=== PATIENT | female | born 1955 | race Caucasian/White ===

== ENCOUNTER → 2022-10-15 | Outpatient (CLI) | payer MEDICARE ==
--- NOTE | 2022-10-17 11:22 | MR ---
EXAMINATION TYPE: MR brain wo/w con DATE OF EXAM: 10/15/2022 COMPARISON: None HISTORY: Lung cancer. CONTRAST: Performed utilizing 6.5 mL intravenous Gadavist gadolinium contrast. TECHNIQUE: Multiplanar, multiecho imaging on a 3.0 Jelly magnet is performed through the brain. Stud y is performed within 24 hours of arrival to the hospital. The craniovertebral junction is normal. The pituitary is normal. Diffusion-weighted imaging is performed. No abnormal hyperintensity is present to suggest an acute i ntracranial infarct or acute ischemic change. Periventricular white matter changes are evident, likely on the basis of chronic white ischemic padgett e. Ventricles and sulci appear appropriate for the patient's age. Ventricles and sulci are appropriate for the patient age. Following contrast, no abnormal enhancement is evident. Postcontrast imaging is somewhat limited due to motion artifact. IMPRESSION: 1. No suspicious changes to suggest metastatic disease.
== END | disposition home or self-care (01) ==
LOC: RADMRIMAIN 09:57
PROVIDERS: ATTEND Internal Medicine
DX: C34.82 Malignant neoplasm of overlapping sites of left bronchus and lung (principal)
CPT/HCPCS: 70553; A9585

== ENCOUNTER → 2022-11-28 | Day surgery (SDC) | payer MEDICARE ==
[2022-11-23 14:45] VITALS: BMI 24.3
[~2022-11-28] MED LIST: ALBUTEROL NEBULIZED 2.5 MG/3 ML INHALATION ONE; DEXAMETHASONE SOD PHOSPHATE 4 MG/ML 1 ML VIAL IV ONE; GLYCOPYRROLATE 0.2 MG/ML 2 ML VIAL ONE; HYDROmorphone 0.5 MG/0.5 ML SYRINGE IVP PRN; LACTATED RINGERS 1,000 ML IV SCH; MIDAZOLAM 2 MG/2 ML VIAL IV PRN; NEOSTIGMINE 1 MG/ML 10 ML VIAL ONE; ONDANSETRON 4 MG/2 ML VIAL IVP ONE; PROPOFOL 10 MG/ML 20 ML VIAL IV ONE; ROCURONIUM 10 MG/ML (5 ML VIAL) IV ONE; SUCCINYLCHOLINE CHLORIDE 200 MG/10 ML VIAL IV ONE; fentaNYL (PF) 50 MCG/ML 2 ML AMP ONE; methylPREDNISolone SOD SUCCI 125 MG/2 ML VIAL ONE
--- NOTE | 2022-11-28 11:30 | CT ---
EXAMINATION TYPE: CT chest wo con CT DLP: 223.8 mGycm, Automated exposure control for dose reduction was used. DATE OF EXAM: 11/28/2022 11:14 AM COMPARISON: PET/CT 09/07/2022, CT chest 08/16/2022 CLINICAL INDICATION:Female, 67 years old with history of ION BRONCH; PHH, pre op ion broch TECHNIQUE: Multiple axial images were obtained through the chest without IV contrast. Lack of IV or o ral contrast limits evaluation of solid and hollow organ viscera. . Coronal and sagittal reformats re viewed. Veran protocol. FINDINGS: LUNGS/ PLEURA: No pleural effusion or pneumothorax. Moderate to severe centrilobular emphysematous ch anges. Scarring within the right middle lobe. Patchy consolidation within the medial left upper lobe this was FDG avid on prior PET/CT. Measures grossly 11.4 x 3.2 cm. This extends into the left perihi lar region. AIRWAY: Narrowing of the left upper lobe bronchi secondary to surrounding mass. HEART: Size within normal limits. No pericardial effusion. Aortic valvular calcifications. Coronary a rterial calcifications. MEDIASTINUM: No gross evidence of adenopathy. Atherosclerotic calcification of the aorta and its bran ches. VASCULATURE: No aortic aneurysm. MUSCULOSKELETAL: No acute osseous abnormalities. No aggressive osseous lesion. Remote right-sided rib fractures. SOFT TISSUES/LYMPH NODES: Unremarkable. LOWER NECK: No significant findings. UPPER ABDOMEN: New left hepatic lobe hypodense 7.3 cm mass with lobulated appearance of the liver con tour (series 3, image 254). Small hiatal hernia. Partial visualization of left renal 3.8 cm cyst IMPRESSION: 1. Patchy left perihilar masslike consolidation extending into the medial left upper lobe and was FDG avid on prior PET/CT concerning for malignancy. 2. New left hepatic lobe 7.3 cm hypodense mass concerning for metastasis until proven otherwise. 3. Moderate to severe COPD changes.
[2022-11-28 12:02] VITALS: RESP 16
--- NOTE | 2022-11-28 13:43 | FL ---
Intraoperative/procedural fluoroscopic services were provided for bronchoscopy. Total fluoroscopy izabel e is 1.40 minutes with a total of 1 submitted image to PACS. Total DAP 4.3095 Gycm2. Please see the operative note for further details.
--- NOTE | 2022-11-28 13:45 | P.PCN ---
Date of Procedure: 11/28/22 Operative Findings: Date of Procedure: 08/18/22 Description of Procedure: Preoperative Diagnosis: left upper lobe mass Postoperative Diagnosis: Left upper lobe mass Procedure(s) Performed: Flexible bronchoscopy Robotic-assisted bronchoscopy and addition to radial ultrasound evaluation of the lung mass Robotic-assisted test monitor needle aspirate, transbronchial biopsies, transbronchial brushing of the left upper lobe mass in addition to a bronchioloalveolar lavage Anesthesia: MAC Surgeon: Christian Miles Estimated Blood Loss (ml): 0 Pathology: other Condition: stable Disposition: same day Operative Findings: A physical exam was performed. Informed consent was obtained from the patient after explaining all the risks (pneumothorax, life threatening bleeding, infection and adverse effects due to medications), benefits and alternatives to the procedure which the patient appeared to understand and so stated. The patient was connected to the monitoring devices. General anesthesia was induced and the patient was intubated by anesthesia. A final timeout was performed and the procedure confirmed by the attending staff bronchoscopist. The bronchoscope was inserted and the airway examined. The flexible bronchoscope was removed and the robotic bronchoscope was inserted. Registration was completed. I next guided the robotic bronchoscope using the navigation system into the left upper lobe lateral apical segment. Once in proper position, the bronchoscope was frozen. Note that the airway was completely plugged by extrinsic compression and endobronchial tumor. The radial EBUS probe was placed through the bronchoscope and confirmed abnormal u/s images vs normal lung. A needle was placed through the working channel and under fluoroscopic guidance, we sampled the area thought to have the mass twice. We then used a cloud biopsy pattern with ultrasound confirmation for 2 additional passes with the needle. U/S evaluation was then used to reconfirm location. Forceps were next introduced through working channel and extended the appropriate distance and 3 transbronchial biopsies were performed using fluoroscopic guidance. The u/s probe was then reinserted to confirm location. When confirmed this process was repeated for a total of 6 transbronchial biopsies. After reassessment with EBUS, a brush was placed through the extendable working channel for 1 pass with fluoroscopic guidance. U/S evaluation was then used to confirm location. 60 ml of saline was then instilled into the area of the lesion. The robotic bronchoscope was removed and the airway inspected with a flexible bronchoscope and 20 ml of effluent from the BAL was collected. The aspirate was bloody and ultimately declotted and based on that, the sample was discarded. Okay An ultrasound examination identified all major landmarks was completed. The patient was then extubated with the EBUS-TBNA bronchoscope and intubated with an Olympus IT bronchoscope without difficutly. The airways were inspected and cleared of secretions and blood. Fluoroscopic check for pneumothorax was negative upon completion of the procedure. There was 0 ml blood loss with the procedure. FINDINGS: 1.The airways appeared normal 2 Successful navigation, ultrasonographic identification, and biopsies of left upper lobe mass 3.The EBUS view was (Concentric/Eccentric)}. RECOMMENDATIONS: Await pathology and cytology results The referring physician will be alerted to the results when available. The patient was advised to follow up with the referring physician with the biopsy results Patient will be called with results.
[2022-11-28 14:01] VITALS: TEMP 97
[2022-11-28 15:00] VITALS: BP 138/79; PULSE 77
== END ==
LOC: ORWHC2ENDO 10:56
PROVIDERS: ATTEND Internal Medicine Critical Care Medicine
DX: C7A.1 Malignant poorly differentiated neuroendocrine tumors (principal); J44.9 Chronic obstructive pulmonary disease, unspecified
CPT/HCPCS: 88108; 88305; 88173; 88342; 88341; 87070; 87205; 87116; 87102; 87206; 71250; 31628; 31629; 31624; J0330; J1100; J2710; J2930; J2405; J3010; J2704; S2900